=== PATIENT | male | born 1985 | race African-American/Black ===

== ENCOUNTER 2017-04-07 23:04 | Emergency (ER) | payer SELFPAY ==
[~2017-04-07] VITALS: Ht 165.1 cm; Wt 74.8 kg
[2017-04-07 23:09] VITALS: BP 131/86
--- NOTE | 2017-04-07 23:28 | NUR ---
PT BIBA TO ER OF[facility] WITH [place] [facility]
[2017-04-08 01:40] VITALS: BP 127/73
--- NOTE | 2017-04-08 01:40 | NUR ---
Patient discharged with v/s stable. Written and verbal after care instructions given and explained. Patient verbalized understanding. Police with in custody. All questions addressed prior to discharge. Advised to follow up with PMD.
== END 2017-04-08 01:40 ==
LOC: MED 23:04
DX: Z02.89 Encounter for other administrative examinations (principal); S00.03XA Contusion of scalp, initial encounter; Y04.8XXA Assault by other bodily force, initial encounter; Y93.89 Activity, other specified; Y92.89 Other specified places as the place of occurrence of the external cause; Y99.8 Other external cause status
CPT/HCPCS: 70450; 99283; 99284